=== PATIENT | female | born 1995 | race Caucasian/White ===

== ENCOUNTER 2023-10-15 09:48 | Emergency (ER) | payer MEDICAID ==
[~2023-10-15] VITALS: Ht 152.4 cm; Wt 91.0 kg
[2023-10-15 09:58] VITALS: O2SAT 100
[2023-10-15] MEDS ORDERED: TETRACAINE 0.5% OPHTH DROPS 4ML BOTHEYE ONE (10:45)
[2023-10-15] MEDS ORDERED: FLUORESCEIN SODIUM 1MG/STRIP RIGHTEYE ONE (11:00)
[2023-10-15] MEDS ORDERED: ACETAZOLAMIDE SODIUM 500MG/VIAL IV ONE ×3 (11:30→17:45)
[2023-10-15] MEDS ORDERED: ACETAZOLAMIDE 500MG ER CAPSULE PO ONE (11:30)
[2023-10-15 12:21] LABS: HEMATOCRIT 29.8 % (36.0-48.0); HEMOGLOBIN 9.3 g/dL (12.0-16.0); MEAN CORPUSCULAR HEMOGLOBIN 21.8 pg (28.0-32.0); MEAN CORPUSCULAR HGB CONC 31.1 g/dL (31.0-37.0); RED BLOOD CELL COUNT 4.25 mill/uL (4.2-5.4); RED CELL DISTRIBUTION WIDTH 25.9 % (11.6-14.6); WHITE BLOOD COUNT 6.4 x1000/uL (4.5-11.0)
[2023-10-15 12:49] LABS: ALANINE AMINOTRANSFERASE 22 IU/L (10-49); ALBUMIN 4.1 g/dL (3.2-4.8); ASPARTATE AMINOTRANSFERASE 19 IU/L (<34); BILIRUBIN TOTAL 0.4 mg/dL (0.1-1.0); CALCIUM 9.5 mg/dL (8.7-10.4); CARBON DIOXIDE 26 mEq/L (21-32); CHLORIDE 106 mEq/L (98-107); GLUCOSE 107 mg/dL (70-105); POTASSIUM 4.5 mEq/L (3.5-5.1); PROTEIN TOTAL 7.2 g/dL (6.0-8.3); SODIUM 139 mEq/L (136-145); UREA NITROGEN BLOOD 14 mg/dL (9-23)
[2023-10-15 13:07] LABS: PLATELET 103 x1000/uL (130-400)
[2023-10-15] MEDS ORDERED: BRIMONIDINE 0.2% OPHTH DROPS 5ML RIGHTEYE SCH (14:00)
[2023-10-15] MEDS ORDERED: PILOCARPINE HCL 2% OPHTH DROPS 15ML RIGHTEYE SCH (14:00)
[2023-10-15] MEDS ORDERED: ACETAZOLAMIDE SODIUM 500MG/VIAL IV NR (17:30)
[2023-10-15 19:56] VITALS: BP 129/83; PULSE 77; RESP 16; TEMP 97.9
[2023-10-15] MEDS ORDERED: TIMOLOL MALEATE 0.5% OPHTH DROPS 5ML RIGHTEYE SCH (21:00)
== END 2023-10-15 20:04 | disposition short-term general hospital (02) ==
LOC: ER 09:57 → CANBEDREQ 14:26 → ER 20:04
DX: H40.20X0 Unspecified primary angle-closure glaucoma, stage unspecified (principal); I10 Essential (primary) hypertension; Z98.890 Other specified postprocedural states
CPT/HCPCS: 80053; 85027; 36415; 96374; 96375; 99285; J1120; Z7610 ×2